=== PATIENT | female | born 1965 | race Hispanic/Latino ===

== ENCOUNTER 2017-12-01 13:53 | Observation (INO) | payer BC, OTHER ==
[~2017-12-01] VITALS: Ht 157.5 cm; Wt 98.0 kg
[~2017-12-01 13:53] MED LIST: DULERA 100 MCG/13 GM INH; ESIDRIX25 MG PO
[2017-12-01] MEDS ORDERED: BELLADONNA ALK/PHENOBARBITAL 5 ML UDC PO STA (14:14)
[2017-12-01] MEDS ORDERED: ASPIRIN 81 MG CHEW TAB PO ONE (14:15)
[2017-12-01] MEDS ORDERED: LIDOCAINE VISC 2% SOLN 15 ML UDC PO ONE (14:15)
[2017-12-01] MEDS ORDERED: MAGNESIUM/ALUMINUM/SIMETHICONE 30 ML UDC PO ONE (14:15)
--- NOTE | 2017-12-01 15:22 | Diagnostic Imaging Report ---
PROCEDURE: A single AP view of the chest. COMPARISON: None. INDICATIONS: MIDSTERNAL CHEST PAIN FINDINGS: Lines/tubes: None. Lungs: The lungs are hypoinflated, but grossly clear. There is no evidence of pneumonia or pulmonary edema. Pleura: There is no pleural effusion or pneumothorax. Heart and mediastinum: The heart and the mediastinum are unremarkable. Bones: No acute bony abnormality. IMPRESSION: 1. hypoinflated lungs, without acute cardiopulmonary disease. Caleb Burgess M.D. Dictated by: Caleb Burgess M.D. on 12/01/2017 at 15:24 Electronically approved by: Caleb Burgess M.D. on 12/01/2017 at 15:24
[2017-12-01] MEDS ORDERED: SODIUM CHLORIDE 0.9% 1000ML 1,000 ML IV SCH (15:24)
[2017-12-01] MEDS ORDERED: AZITHROMYCIN 500MG/SOD CHL 0.9% 250ML BAG IV SCH (15:30)
[2017-12-01] MEDS ORDERED: ONDANSETRON HCL 4 MG ORAL DISINTEGRATING TAB PO ONE (15:30)
[2017-12-01 15:52] LABS: BASOPHILS # (AUTO) 0.1 (0.0-0.1); BASOPHILS % 0.4 % (0.0-1.0); EOSINOPHILS # (AUTO) 0.1 (0.0-0.4); EOSINOPHILS % 0.8 % (0.0-6.0); HEMATOCRIT 45.1 % (34.2-44.1); HEMOGLOBIN 14.9 g/dL (12.0-16.0); LYMPHOCYTES # (AUTO) 3.2 (1.0-3.2); LYMPHOCYTES % 24.7 % (18.0-39.1); MEAN CORPUSCULAR VOLUME 90.7 fL (81-99); MONOCYTES # (AUTO) 0.5 (0.2-0.8); MONOCYTES % 3.7 % (4.4-11.3); NEUTROPHILS # (AUTO) 9.1 (2.1-6.9); PLATELET COUNT 223 x10e3/uL (140-360); RED BLOOD COUNT 4.97 x10e6/uL (3.6-5.1); RED CELL DISTRIBUTION WIDTH 13.9 % (11.7-14.4)
[2017-12-01 15:56] LABS: BILIRUBIN,URINE NEGATIVE (NEGATIVE); CLARITY,URINE SL CLOUDY (CLEAR); COLOR,URINE YELLOW (YELLOW); KETONES,URINE NEGATIVE (NEGATIVE); LEUKOCYTE ESTERASE ,URINE NEGATIVE (NEGATIVE); NITRITE,URINE NEGATIVE (NEGATIVE); PROTEIN,URINE DIPSTICK NEGATIVE (NEGATIVE); URINE UROBILINOGEN 0.2 mg/dL (0.2 - 1)
[2017-12-01 15:58] LABS: INR 1.03; PARTIAL THROMBOPLASTIN TIME 27.9 seconds (23.8-35.5); PROTHROMBIN TIME 12.7 seconds (11.9-14.5)
[2017-12-01] MEDS ORDERED: ALBUTEROL SULF 0.083% NEB SOLN 3 ML NEB NEB SCH (16:00)
[2017-12-01] MEDS ORDERED: AZITHROMYCIN 500MG/NS 250 ML 250 ML IV SCH (16:00)
[2017-12-01] MEDS ORDERED: IPRATROPIUM BROMIDE 0.02% 2.5 ML NEB NEB SCH (16:00)
[2017-12-01] MEDS ORDERED: PIPER-TAZ 3.375 GM 100 ML IV SCH (16:00)
[2017-12-01 16:05] LABS: BACTERIA,URINE FEW /HPF; EPITHELIAL CELLS,URINE MANY /LPF
[2017-12-01 16:06] LABS: TRANSITIONAL EPI CELLS,URINE FEW
[2017-12-01 16:12] LABS: ALANINE AMINOTRANSFERASE 26 IU/L (0-55); ALBUMIN 3.9 g/dL (3.5-5.0); ALBUMIN/GLOBULIN RATIO 0.9 (0.8-2.0); ALKALINE PHOSPHATASE 62 IU/L (40-150); ANION GAP 13.7 mmol/L (8-16); BLOOD UREA NITROGEN 19 mg/dL (7-26); BUN/CREATININE RATIO 23 (6-25); CALCIUM 10.4 mg/dL (8.4-10.2); CARBON DIOXIDE 25 mmol/L (22-29); CHLORIDE 104 mmol/L (98-107); CREATINE KINASE 44 IU/L (29-168); CREATININE, SERUM 0.82 mg/dL (0.57-1.11); EST GLOMERULAR FILTRATION RATE > 60 ML/MIN (60-); GLUCOSE 81 mg/dL (74-118); POTASSIUM 3.7 mmol/L (3.5-5.1); SODIUM 139 mmol/L (136-145)
[2017-12-01 16:31] LABS: THYROID STIMULATING HORMONE 0.901 uIU/mL (0.350-4.940)
[2017-12-01] MEDS ORDERED: ONDANSETRON HCL INJ 2 MG/ML VIAL IV PRN (17:30)
[2017-12-01] MEDS ORDERED: NITROGLYCERIN 0.4 MG SUBL SL PRN (17:30)
[2017-12-01] MEDS ORDERED: ONDANSETRON HCL 4 MG ORAL DISINTEGRATING TAB PO PRN (17:45)
[2017-12-01] MEDS ORDERED: OMEPRAZOLE40 MG PO (17:57)
--- OUTSIDE RECORDS SUMMARY | 2017-12-01 18:35 | XMS REPORT ---
Author Author [facility] Address Unknown Phone Unavailable Care Team Providers Care Design Assembler Name Role Phone LUZ WASHBURN Unavailable Unavailable Problems This patient has no known problems. Allergies, Adverse Reactions, Alerts This patient has no known allergies or adverse reactions. Medications This patient has no known medications. Results Test Description Test Time Test Comments Text Results Atomic Results Result Comments CHEST SINGLE (PORTABLE) [place] [address] Patient Name: REBEL HALL MR #: [id number] : 1965 Age/Sex: 52/F Req #: [id number] Adm Physician: Ordered by: MARCUS HARO BAR ROLLER Report # : [id number] Location: ER Room/Bed: Procedure: [id number] DX/CHEST SINGLE (PORTABLE) Exam Date: 12/01/17 Exam Time: 1445 REPORT STATUS: Signed PROCEDURE: A single AP view of the chest. COMPARISON: None. INDICATIONS: MIDSTERNAL CHEST PAIN FINDINGS: Lines/tubes: None. Lungs: The lungs are hypoinflated, but grossly clear. There is no evidence of pneumonia or pulmonary edema. Pleura: There is no pleural effusion or pneumothorax. Heart and mediastinum: The heart and the mediastinum are unremarkable. Bones: No acute bony abnormality. IMPRESSION: 1. hypoinflated lungs, without acute cardiopulmonary disease. Clyde Burgess M.D. Dictated by: Clyde Burgess M.D. on 12/01/2017 at 15:24 Electronically approved by: Clyde Burgess M.D. on 12/01/2017 at 15 :24 Dictated By: CLYDE BURGESS MD 1524 Transcribed By: DEA on 12/01/17 1524 COPY TO: MARCUS HARO NP
[2017-12-01 20:15] VITALS: BP 130/88
[2017-12-01 20:20] VITALS: BP 130/88
[2017-12-01] MEDS: SUCRALFATE 1 GM TAB PO SCH (21:45)
[2017-12-02] VITALS (8 sets, daily range): BP systolic 101–121; BP diastolic 61–74
[2017-12-02 00:24] LABS: CREATINE KINASE 31 IU/L (29-168)
[2017-12-02 06:23] LABS: BASOPHILS # (AUTO) 0.1 (0.0-0.1); BASOPHILS % 0.6 % (0.0-1.0); EOSINOPHILS # (AUTO) 0.2 (0.0-0.4); EOSINOPHILS % 1.7 % (0.0-6.0); HEMATOCRIT 41.6 % (34.2-44.1); HEMOGLOBIN 13.9 g/dL (12.0-16.0); LYMPHOCYTES # (AUTO) 2.5 (1.0-3.2); LYMPHOCYTES % 27.7 % (18.0-39.1); MEAN CORPUSCULAR HEMOGLOBIN 30.5 pg (28-32); MEAN CORPUSCULAR HGB CONC 33.4 g/dL (31-35); MEAN CORPUSCULAR VOLUME 91.4 fL (81-99); MONOCYTES # (AUTO) 0.4 (0.2-0.8); MONOCYTES % 4.9 % (4.4-11.3); NEUTROPHILS # (AUTO) 5.9 (2.1-6.9); NEUTROPHILS % 64.9 % (38.7-80.0); PLATELET COUNT 187 x10e3/uL (140-360); RED BLOOD COUNT 4.55 x10e6/uL (3.6-5.1); RED CELL DISTRIBUTION WIDTH 13.9 % (11.7-14.4)
[2017-12-02 06:55] LABS: ANION GAP 12.6 mmol/L (8-16); BLOOD UREA NITROGEN 18 mg/dL (7-26); BUN/CREATININE RATIO 22 (6-25); CALCIUM 10.1 mg/dL (8.4-10.2); CARBON DIOXIDE 27 mmol/L (22-29); CHLORIDE 106 mmol/L (98-107); CHOLESTEROL 168 MD/DL (0-199); CREATININE, SERUM 0.81 mg/dL (0.57-1.11); EST GLOMERULAR FILTRATION RATE > 60 ML/MIN (60-); GLUCOSE 94 mg/dL (74-118); HDL CHOLESTEROL 42 MG/DL (40-60); LDL CHOLESTEROL 103 MG/DL (60-130); POTASSIUM 4.6 mmol/L (3.5-5.1); SODIUM 141 mmol/L (136-145); TRIGLYCERIDES 113 MG/DL (0-149)
[2017-12-02] MEDS ORDERED: PANTOPRAZOLE SOD 40 MG TABEC PO SCH (07:30)
[2017-12-02 07:36] LABS: CREATINE KINASE 27 IU/L (29-168)
[2017-12-02] MEDS: SUCRALFATE 1 GM TAB PO SCH ×4 (08:27→20:28)
[2017-12-02] MEDS ORDERED: PROTONIX 200MG/SODIUM CHLORIDE 0.9% 250 ML BAG IV SCH (11:15)
[2017-12-02] MEDS: PANTOPRAZOL 40MG/SOD CHL 0.9% 50 ML IV SCH ×4 (14:41→21:20)
--- NOTE | 2017-12-02 14:46 | Consultation ---
DATE OF CONSULTATION: December 02, 2017 CARDIOLOGY CONSULTATION REQUESTING PHYSICIAN: Dr. Debbi Anderson REASON FOR CONSULTATION: Chest pain. HISTORY OF PRESENT ILLNESS: This is a 52-year-old woman with history of hypertension and Crohn's disease, who presents with complaint of chest pain. The patient reports she has been having chest pain since Thursday. She describes it as a central chest pressure, 6/10 to 7/10 in severity, associated with nausea and shortness of breath. The pain has been constant since onset. She has not noted any aggravating or alleviating factors. She denies any edema, orthopnea or PND, although she does note heaviness in her legs. REVIEW OF SYSTEMS: Negative, except as per HPI. PAST MEDICAL HISTORY 1. Hypertension. 2. Crohn's disease. 3. Hyperlipidemia. PAST SURGICAL HISTORY 1. Breast reduction surgery. 2. Umbilical hernia repair. ALLERGIES: PLEASE SEE EMR. MEDICATIONS: Please see medication list. SOCIAL HISTORY: Denies tobacco, alcohol, or illicit drugs. FAMILY HISTORY: Notable for her father who of a myocardial infarction at the age of 61. PHYSICAL EXAMINATION VITALS: Temperature 97.9 degrees, pulse 58, respiratory rate 17, blood pressure 121/74, oxygen saturation 96% on room air. GENERAL: Obese woman, well developed, well nourished, in no acute distress. HEENT: Normocephalic and atraumatic. Pupils are equal. No scleral icterus. NECK: Supple. No thyromegaly or cervical lymphadenopathy. No carotid bruit. LUNGS: Clear to auscultation bilaterally. No wheezes or crackles. CARDIOVASCULAR: Normal rate, regular rhythm. No murmur. Normal S1 and S2. ABDOMEN: Soft. Nontender. EXTREMITIES: No edema. NEURO: Nonfocal exam. LABS: WBC 9, hemoglobin 13.9, hematocrit 41.6, platelets 187. Sodium 141, potassium 4.6, chloride 106, CO2 27, BUN 18, creatinine 0.81. Troponin less than 0.001. Triglycerides 113, cholesterol 168, LDL 103, HDL 42. EKG: Normal sinus rhythm. Cannot rule out anterior infarct, age undetermined. CHEST X-RAY: Hypoinflated lungs without acute cardiopulmonary disease. NUCLEAR STRESS TEST, 05/22/2016: Normal myocardial perfusion. LV systolic function was normal without regional wall-motion abnormalities. Patient demonstrated good exercise tolerance. Exercised for 9 minutes to stage 3 and completed estimated work load of 10.1 metabolic equivalents. IMPRESSION 1. Chest pain. 2. Hypertension. 3. Hyperlipidemia. 4. Obesity. 5. History of Crohn disease. RECOMMENDATIONS: Patient ruled out for myocardial infarction with serial cardiac biomarkers. The patient's last stress test was in April 2016 without evidence of ischemia and good exercise tolerance. We will obtain an echocardiogram. Given her recent normal nuclear stress test, consider alternate etiologies for the patient's chest pain. Note GI consultation. Thank you for this consult. We will continue to follow. Job#: [id number]
--- NOTE | 2017-12-02 16:42 | Diagnostic Imaging Report ---
EXAM: CT Abdomen and Pelvis WITH contrast INDICATION: \S\ABDOMINAL PAIN \S\[id number] \S\[id number] COMPARISON: None. TECHNIQUE: Abdomen and pelvis were scanned utilizing a multidetector helical scanner from the lung base to the pubic symphysis after administration of IV contrast. Coronal and sagittal reformations were obtained. Routine protocol was performed. Scan was performed when during portal venous phase. IV CONTRAST: 100 mL of Isovue-370 ORAL CONTRAST: Water COMPLICATIONS: None RADIATION DOSE: Total DLP: 798.43 mGy*cm Estimated effective dose: (DLP x 0.015 x size factor) mSv CTDIvol has been reviewed. It is below the limits set by the Radiation Protocol Committee (RPC). FINDINGS: LINES and TUBES: None. LOWER THORAX: Unremarkable HEPATOBILIARY: No focal hepatic lesions. No biliary ductal dilation. GALLBLADDER: Surgically absent. SPLEEN: No splenomegaly. PANCREAS: No focal masses or ductal dilatation. ADRENALS: No adrenal nodules KIDNEYS/URETERS: Kidneys enhance symmetrically. No hydronephrosis. No cystic or solid mass lesions. Multifocal small areas of cortical thinning/scarring. No stones. GI TRACT: No abnormal distention, wall thickening, or evidence of bowel obstruction. Appendix is normal. Punctate appendicolith in maximal appendix (series 2, image 59). Hyperdensity within cecum is probably an ingested pill (series 2, image 56). PELVIC ORGANS/BLADDER: Multi fibroid uterus. Lateral is unremarkable. LYMPH NODES: No lymphadenopathy. VESSELS: Unremarkable. PERITONEUM / RETROPERITONEUM: No free air or fluid. BONES: Unremarkable. L5-S1 degenerative changes. SOFT TISSUES: Mild nonspecific soft tissue thickening at the umbilicus (series 2, image 56). IMPRESSION: 1. No acute inflammatory process in the abdomen/pelvis. 2. Myomatous uterus. Signed by: Dr. Raul Garcia MD on 12/02/2017 4:38 PM
[2017-12-02] MEDS ORDERED: HYDROCHLOROTHIAZIDE 25 MG TAB PO SCH (21:00)
[2017-12-02] MEDS ORDERED: IOPAMIDOL 370 MG/ML 200 ML INFUS..BTL INJ ONE (22:57)
[2017-12-02] MEDS ORDERED: SODIUM CHLORIDE 0.9% 50ML 50 ML ONE (22:57)
[2017-12-03] VITALS: BP 112/73
[2017-12-03 04:00] VITALS: BP 114/73
[2017-12-03 07:45] VITALS: BP 107/62
--- NOTE | 2017-12-03 10:10 | Operative Report ---
DATE OF PROCEDURE: December 03, 2017 PROCEDURE PERFORMED: Esophagogastroduodenoscopy with biopsies. REFERRING PHYSICIAN: Dr. Sanchez Bettencourt INDICATIONS FOR EGD: Upper abdominal pain. MEDICATION: Patient was done under MAC. Please see anesthesiologist note. PROCEDURE IN DETAIL: With the patient in left lateral decubitus position, flexible fiberoptic Olympus gastroscope was introduced into the esophagus under direct visualization without any difficulty. There was some patchy erythema noted in distal esophagus. A minute tongue of velvety red mucosa was noted to extend proximally from the GE junction that was biopsied to rule out Mosley's. The scope was then advanced with ease into her stomach and the mucosa overlying the antrum and the body revealed some diffuse erythema and moderate edema, and biopsies were obtained and sent to stain for H. pylori. Pylorus was of normal contour and shape. It was intubated with ease and the scope was advanced all the way to the second portion of the duodenum. The scope was then withdrawn slowly. Mucosa overlying the proximal second portion and the duodenal bulb appeared to be within normal limits. The scope was then withdrawn back into the stomach and retroflexed, and the mucosa overlying the fundus and the cardia appeared to be within normal limits. The scope was then straightened out. The stomach was decompressed. The scope was subsequently withdrawn. Patient tolerated the procedure well. IMPRESSION: 1. Distal esophagitis, mild. 2. Rule out Mosley's esophagus. 3. Gastritis, biopsied. Biopsy sent to stain for Helicobacter pylori. PLAN: Follow up histology. Initiate Protonix 40 mg 1 p.o. q.a.m. a.c. Job#: [id number] cc:SANCHEZ BETTENCOURT DO
[2017-12-03 11:16] VITALS: BP 119/71
[2017-12-03] MEDS ORDERED: PROPOFOL IV EMULSION 10 MG/ML 50 ML VIAL ONE (11:23)
[2017-12-03] MEDS ORDERED: PANTOPRAZOLE SO40 MG PO (15:03)
--- NOTE | 2017-12-03 15:39 | Progress Note ---
DATE: December 03, 2017 CARDIOLOGY PROGRESS NOTE SUBJECTIVE: Patient denies chest pain or shortness of breath. She underwent EGD by GI today, which demonstrated mild distal esophagitis as well as gastritis. Biopsies were obtained to rule out Mosley's esophagus. OBJECTIVE VITAL SIGNS: Temperature 97.6 degrees, pulse 66, respiratory rate 16, blood pressure 119/71, oxygen saturation 97% on room air. GENERAL: Awake, alert, in no acute distress. LUNGS: Clear to auscultation bilaterally. No wheezes or crackles. CARDIOVASCULAR: Normal rate, regular rhythm. No murmur. Normal S1 and S2. ABDOMEN: Soft, nontender. EXTREMITIES: No edema. LABS: None today. TELEMETRY: Normal sinus rhythm. IMPRESSION 1. Chest pain. 2. Hypertension. 3. Hyperlipidemia. 4. Obesity. 5. History of Crohn's disease. RECOMMENDATIONS: The patient ruled out for a myocardial infarction with serial cardiac biomarkers. Her last stress test was normal in April of 2016 with good exercise tolerance. Echocardiogram demonstrated normal LV systolic function. Given her recent normal nuclear stress test as well as findings of esophagitis and gastritis on EGD, suspect patient's chest pain was GI in etiology. No further cardiac evaluation is indicated at this time. ER warnings were provided to the patient. If she has recurrent chest pain, she will need to follow up with nuclear stress test. Thank you for this consult. We will continue to follow. Job#: [id number]
[2017-12-03 15:40] VITALS: BP 123/78
[2017-12-03] MEDS ORDERED: FENTANYL CITRATE/PF 100MCG/2 ML INJ ONE (18:50)
[2017-12-03] MEDS ORDERED: MIDAZOLAM HCL 2 MG/2 ML VIAL ONE (18:50)
== END 2017-12-03 15:30 | disposition home or self-care (01) ==
LOC: ER 13:53 → ERHOLD 18:33 → IMCU 19:46
DX: K21.0 Gastro-esophageal reflux disease with esophagitis (principal); E66.01 Morbid (severe) obesity due to excess calories; I10 Essential (primary) hypertension; K50.90 Crohn's disease, unspecified, without complications; E78.5 Hyperlipidemia, unspecified; K29.70 Gastritis, unspecified, without bleeding; Z68.39 Body mass index [BMI] 39.0-39.9, adult; K90.0 Celiac disease; K29.50 Unspecified chronic gastritis without bleeding; B96.81 Helicobacter pylori [H. pylori] as the cause of diseases classified elsewhere; R07.89 Other chest pain
CPT/HCPCS: 36415 ×2; 43239; 71045; 74177; 80048; 80053; 80061; 81001; 82550 ×2; 82553 ×2; 84443; 84484 ×2; 85025 ×2; 85610; 85730; 87086; 88305; 88312; 93005; 93306; 99284; G0378 ×3; J2250; Q9967